=== PATIENT | female | born 1975 | race Caucasian/White ===

== ENCOUNTER 2016-08-22 09:17 | Day surgery (SDC) | payer OTHER ==
[~2016-08-22] VITALS: Ht 165.1 cm; Wt 65.2 kg
[~2016-08-22 09:17] MED LIST: ACET-2047 PO; ADV25050 INHALATION; ATOR20TA38 PO; BUDE0.5A6 INHALATION; CALC-74 PO; CICL12.52 NASAL; ESOM40CA PO; FLEC100T PO; FURO20TA3 PO; GABA600T15 PO; LEVA0.634 INHALATION; LINA5TAB PO; MECL-90 PO; MONT10TA21 PO; OMAL150V INJ; POTASSIUM PO; RIVA20TA PO; VERA240C4 PO; VIT B12 PO; [UNRECOGNIZED DRUG - OTHER]
[2016-08-22 10:35] VITALS: Ht 165.1 cm; Wt 65.2 kg
[2016-08-22 10:55] VITALS: BP 120/68; PULSE 81; RESP 18
[2016-08-22] MEDS ORDERED: FENTAnyl 50 MCG/ML VIAL ONE ×2 (11:34)
[2016-08-22] MEDS ORDERED: MIDAZOLAM 1 MG/ML 2 ML INJ ONE ×3 (11:34→11:35)
[2016-08-22 11:44] VITALS: BP 90/60; PULSE 62; RESP 16
--- NOTE | 2016-08-22 17:09 | GILP ---
DATE OF PROCEDURE: 08/22/2016 NAME OF PROCEDURE: Colonoscopy. SURGEON: Salud Thompsno MD PREOPERATIVE DIAGNOSES 1. Screening colonoscopy. 2. Strong family history of colon cancer. POSTOPERATIVE DIAGNOSES: 1. Colonoscopy all the way to the cecum. 2. Internal hemorrhoids. 3. No colon neoplasm was identified. INDICATION FOR THE PROCEDURE: Ms. Mya Dean is a 41-year-old female patient who was schedul ed for screening colonoscopy. The patient had a very strong family history of colon cancer. The procedure and possible complications were well explained to the patient, she understood and cons ented to the procedure. DESCRIPTION OF PROCEDURE: Under the influence of fentanyl and Versed, the colonoscope was carefully introduced in the rectum and under direct vision, it was advanced all the way to the cecum. FINDINGS: The patient had internal hemorrhoids. No colon neoplasm was identified. She tolerated the procedure very well and there was no complication from the procedure. At the end of the procedure, she was awake with stable vital signs and she was discharged home to the care of h er family. IMPRESSION: 1. Colonoscopy all the way to the cecum. 2. Internal hemorrhoids. 3. No colon neoplasm was identified. PLAN: Next screening colonoscopy in 5 years because of the very strong family history of colon canc er. Dictated By: SALUD NEAL/ABBIE Conf#: [id number] DID#: [id number]
== END 2016-08-22 11:53 | disposition home or self-care (01) ==
LOC: GIL 09:17
PROVIDERS: ATTEND Internal Medicine Gastroenterology
DX: Z12.11 Encounter for screening for malignant neoplasm of colon (principal); K64.8 Other hemorrhoids
CPT/HCPCS: 45380; 84703; J2250; J3010; Z7610